=== PATIENT | male | born 1995 | race African-American/Black ===

== ENCOUNTER 2022-02-10 21:21 | Emergency (ER) | payer OTHER ==
[~2022-02-10] VITALS: Ht 175.3 cm; Wt 86.0 kg
[2022-02-11] MEDS ORDERED: ALBU6.7H9 INH (00:31)
[2022-02-11] MEDS ORDERED: P50 PO (00:31)
[2022-02-11] MEDS ORDERED: PREDNISONE 20MG TABLET PO ONE (00:45)
[2022-02-11 01:04] VITALS: BP 128/92
== END 2022-02-11 01:25 | disposition home or self-care (01) ==
LOC: ER 21:21
DX: J45.901 Unspecified asthma with (acute) exacerbation (principal); F15.10 Other stimulant abuse, uncomplicated
CPT/HCPCS: 71045; 99283; J7512

== ENCOUNTER 2022-02-11 06:06 | Emergency (ER) | payer OTHER ==
[~2022-02-11] VITALS: Ht 177.8 cm; Wt 73.0 kg
[~2022-02-11 06:06] MED LIST: ALBU6.7H9 INH; P50 PO
[2022-02-11 08:44] LABS: BASOPHILS % 0.3 % (0.0-2.0); EOSINOPHILS % 0.2 % (0.0-5.0); HEMATOCRIT. 45.6 % (42.0-52.0); HEMOGLOBIN. 14.8 g/dL (14.0-18.0); LYMPHOCYTES % 19.7 % (20.0-50.0); MEAN CORPUSCULAR HEMOGLOBIN 27.1 pg (28.0-32.0); MEAN CORPUSCULAR VOLUME 83.9 fL (80.0-94.0); MEAN PLATELET VOLUME 7.4 fl (7.4-10.4); MONOCYTES % 2.4 % (2.0-8.0); NEUTROPHILS % 77.4 % (40.0-76.0); PLATELET 217 x1000/uL (130-400); RED BLOOD CELL COUNT 5.44 mill/uL (4.7-6.1); RED CELL DISTRIBUTION WIDTH 13.9 % (11.6-14.6)
[2022-02-11 08:51] LABS: CHLORIDE 102 mEq/L (98-107)
[2022-02-11 08:56] LABS: ETHANOL BLOOD < 10 mg/dL
[2022-02-11 12:06] LABS: CLARITY URINE CLEAR (CLEAR); COLOR URINE YELLOW (YELLOW); KETONES URINE 2+ (NEGATIVE); LEUKOCYTE ESTERASE URINE NEGATIVE (NEGATIVE); NITRITE URINE NEGATIVE (NEGATIVE); OCCULT BLOOD URINE NEGATIVE (NEGATIVE); PH URINE 6.5 (4.5-8.0); PROTEIN URINE NEGATIVE (NEGATIVE); SPECIFIC GRAVITY URINE 1.026 (1.005-1.030)
[2022-02-11 12:22] LABS: *AMPHETAMINES SCREEN URINE PRESUMTIVE POSITIVE (NEGATIVE); *BARBITURATES SCREEN URINE NEGATIVE (NEGATIVE); *BENZODIAZEPINES SCREEN URINE NEGATIVE (NEGATIVE); *COCAINE SCREEN URINE NEGATIVE (NEGATIVE)
[2022-02-11 12:23] LABS: CANNABINOID URINE SCREEN PRESUMTIVE POSITIVE (NEGATIVE); METHADONE URINE SCREEN NEGATIVE (NEGATIVE); OPIATES URINE SCREEN NEGATIVE (NEGATIVE); PHENCYCLIDINE URINE SCREEN NEGATIVE (NEGATIVE)
[2022-02-11] MEDS: SERTRALINE HCL 50MG TABLET PO SCH (14:32)
[2022-02-11] MEDS ORDERED: ACETAMINOPHEN 325MG TABLET PO NR (21:00)
[2022-02-12] MEDS ORDERED: IPRATROPIUM/ALBUTEROL 0.5-3(2.5)MG/3ML NEB HHN ONE (01:45)
[2022-02-12] MEDS: SERTRALINE HCL 50MG TABLET PO SCH (09:45)
[2022-02-12] MEDS ORDERED: DICYCLOMINE 10 MG/5 ML ORAL SYR PO STA (11:17)
[2022-02-12] MEDS ORDERED: MAGNESIUM/ALUMINUM HYDROXIDE/SIMETHICONE 30ML UDC PO STA (11:17)
[2022-02-12] MEDS ORDERED: VISCOUS LIDOCAINE 2% 15 ML UDC PO STA (11:17)
[2022-02-12 16:23] VITALS: BP 120/74
== END 2022-02-12 16:23 | disposition home or self-care (01) ==
LOC: ER 06:06
DX: R45.851 Suicidal ideations (principal); F41.9 Anxiety disorder, unspecified; J45.909 Unspecified asthma, uncomplicated; F32.9 Major depressive disorder, single episode, unspecified; Z20.822 Contact with and (suspected) exposure to COVID-19
CPT/HCPCS: 36415; 80053; 80305; 80307; 80320; 80329; 81003; 85025; 94640; 99285; C9803; U0003; U0005; Z7610; G0480